=== PATIENT | female | born 1980 ===

== ENCOUNTER 2017-02-24 11:51 | Emergency (ER) | payer OTHER ==
[2017-02-24 12:09] VITALS: BMI 34.0
[2017-02-24 12:13] VITALS: O2SAT 98
[2017-02-24] MEDS ORDERED: Oxycodone/Acetaminophen 5/325 mg Tab PO STA (12:48)
[2017-02-24] MEDS ORDERED: Oxycodone/Acetaminophen 5/325 mg Tab ONE (13:00)
--- NOTE | 2017-02-24 13:44 | C.PDOC ---
History Of Present Illness 36 yr old female presents to the ER with complaints of left lower dental pain for the past 5 days. Patient states she was seen by the dentist 4 days ago who prescribed her Tyenol #3, ibuprofen and penicillin but no procedure was done due to infection. Patient states she is compliant with medicine but the pain is unbearable. Reports follow up appointment with dentist is on 02/27. Denies fever , throat pain, throat swelling, ear pain or neck pain. Time Seen by Provider: 02/24/17 12:12 Chief Complaint (Nursing): Dental Pain History Per: Patient History/Exam Limitations: no limitations Onset/Duration Of Symptoms: Days (5) Past Medical History Reviewed: Historical Data, Nursing Documentation, Vital Signs Vital Signs: Last Vital Signs Temp 98.1 F 02/24/17 14:02 Pulse 63 02/24/17 14:02 Resp 20 02/24/17 14:02 BP 119/76 02/24/17 14:02 Pulse Ox 98 02/24/17 14:04 Family History: States: No Known Family Hx - Social History Hx Alcohol Use: No Hx Substance Use: No - Immunization History Hx Tetanus Toxoid Vaccination: No Hx Influenza Vaccination: No Hx Pneumococcal Vaccination: No Review Of Systems Constitutional: Negative for: Fever ENT: Positive for: Other ((+) Left lower dental pain ). Negative for: Ear Pain , Throat Pain, Throat Swelling Musculoskeletal: Negative for: Neck Pain Physical Exam - Physical Exam Appears: Non-toxic, Other (appears to be in pain) Skin: Warm, Dry, No Rash Head: Atraumatic, Normacephalic Ear(s): Bilateral: Normal Teeth: Caries (Left lower jaw, 2 tetth with severe carries with gum swelling and erythema, tenderness surrounding. ), Other (Multiple missing teeth. ) Throat: Normal, No Erythema, No Exudate Neck: Normal, Normal ROM, Supple Extremity: Normal ROM, No Swelling Neurological/Psych: Oriented x3, Normal Speech, Normal Motor ED Course And Treatment O2 Sat by Pulse Oximetry: 98 (RA ) Pulse Ox Interpretation: Normal Medical Decision Making Medical Decision Making: PLAN: * Lidocaine Viscous PO * Percocet PO 158 pm pt resting comfortably, will d/c with percocet instead of tylenol #3, continue penicillin and ibupforen. f/u dentist fri . Disposition Counseled Patient/Family Regarding: Diagnosis, Need For Followup, Rx Given - Disposition Disposition: HOME/ ROUTINE Disposition Time: 13:59 Condition: IMPROVED Additional Instructions: Stop Tylenol # 3. take percocet instead; makes you sleepy- no driving or operating machinery when taking this medicine. Continue antibiotics and ibuprofen. Follow up with dental on thursday as planned. Return to ER for any worse symptoms. Dab liquid lidocaine to painful area as needed. Prescriptions: oxyCODONE/Acetaminophen [Percocet 5/325 mg Tab] 1 ea PO Q6 #12 tab Instructions: Dental Caries (ED) Forms: General Discharge Instructions, [facility] (Russian) - Clinical Impression Clinical Impression: Infected dental caries - PA / MANAGER MEDICAL / Resident Statement MD/DO has reviewed & agrees with the documentation as recorded. - Scribe Statement The provider has reviewed the documentation as recorded by the Scribe Karuna Pires All medical record entries made by the Scribe were at my direction and personally dictated by me. I have reviewed the chart and agree that the record accurately reflects my personal performance of the history, physical exam, medical decision making, and the department course for this patient. I have also personally directed, reviewed, and agree with the discharge instructions and disposition.
[2017-02-24 14:02] VITALS: BP 119/76; PULSE 63; RESP 20; TEMP 98.1
== END 2017-02-24 14:13 | disposition home or self-care (01) ==
LOC: C.ER 11:51
DX: K04.7 Periapical abscess without sinus (principal); K02.9 Dental caries, unspecified